=== PATIENT | male | born 1970 | race Caucasian/White ===

== ENCOUNTER 2016-12-29 11:18 | Observation (INO) | payer BC, OTHER ==
[~2016-12-29] VITALS: Ht 175.3 cm; Wt 91.3 kg
[~2016-12-29 11:18] MED LIST: ACID CONTROL150 MG PO; AMLODIPINE BESY10 MG PO; AMLODIPINE BESYL5 MG PO; ANALGESIC325 M1 PO; ASPIR-TRIN325 M1 PO; ASPIRIN EC325 M1 PO; ASPIRIN325 MG PO; ATARAX,VISTARIL25 M1 PO; ATARAX10 MG PO; ATIVAN1 MG PO; ATORVASTATIN CA10 MG PO; CARVEDILOL12.5 MG PO; CLONAZEPAM0.5 MG PO; COLACE CLEAR50 MG PO; COLACE100 MG PO; COLACE50 MG PO; COREG25 M1 PO; CRESTOR20 MG PO; CRESTOR40 MG PO; CYANOCOBALAM1000 MCG PO; Colace PO; DIOVAN160 MG PO; DURAGESIC12 MICROGR TD; Dilaudid PO; EFFIENT10 MG PO; Ecotrin PO; GABAPENTIN300 MG PO; GENACOTE325 MG PO; HUMALOG (UNIT)1 UNIT SC; HUMALOG100 UNIT/1 SC; HUMALOG100 UNIT/1 SQ; HUMALOG100 UNIT/2 SC; HUMALOG100 UNIT/2 SQ; HUMALOG100 UNITS/ SC; HYDROCODON-ACE1 EAC7 PO; IMDUR120 MG PO; IMDUR60 MG PO; IRON325 M1 PO; ISOSORBIDE MON120 M1 PO; KLONOPIN0.5 M1 PO; KLONOPIN1 MG PO; KlonoPIN PO; LANTUS (UNITS)1 UNIT SC; LANTUS 10100 UNITS/ SC; LANTUS 3 M100 UNITS/ PO; LANTUS 3 M100 UNITS/ SC; LANTUS 3 M100 UNITS1 SC; LIPITOR40 MG PO; LISINOPRIL10 MG PO; LISINOPRIL20 MG PO; LITE COAT ASPI325 M1 PO; LOPRESSOR50 MG PO; METOPROLOL SUC100 MG PO; MORPHINE SULFAT15 M1 PO; MS CONTIN,ORAMO15 M1 PO; MULTIVITAMIN1 EAC1 PO; NASACORT10.8 ML BOTH NARES; NEURONTIN300 MG PO; NITRO-DUR1 EAC4 TD; NITROGLYCERIN0.4 MG SL; NITROGLYCERIN1 EAC3 TD; NITROQUICK0.4 MG SL; NITROSTAT,NITR0.4 M1 SL; NITROSTAT0.4 MG SL; NORVASC10 M1 PO; NORVASC10 MG PO; NOVOLOG 10100 UNITS/ SC; NOVOLOG PE100 UNITS/ SC; Norvasc PO; OMEPRAZOLE20 MG PO; OXAYDO5 MG PO; OXYCODONE HCL5 MG PO; PLAVIX75 MG PO; PRAVASTATIN SOD80 MG PO; PRINIVIL5 MG PO; PROAIR HFA8.5 GM IH; PROVENTIL,2.5 MG/3 M IH; RANEXA1000 MG PO; RANEXA500 MG PO; RANITIDINE HCL150 M1 PO; RANITIDINE HCL150 MG PO; ROXICODONE5 MG PO; Ranitidine HCl PO; SERTRALINE HCL100 MG PO; TOPROL XL100 MG PO; TYLENOL ARTHRI650 M2 PO; TYLENOL EXTRA500 MG PO; ZANTAC150 M1 PO; ZANTAC150 MG PO; ZETIA10 MG PO; ZOLOFT100 MG PO; Zestril,Prinivil PO; Zoloft PO; metoprolol PO; oxyCODONE PO
[2016-12-29 12:11] LABS: HEMATOCRIT 32.2 % (38.0-50.0); MCH 31.2 PG (29.0-34.0); MCHC 34.8 G/DL (30.0-36.0); MCV 89.7 FL (86-99); MEAN PLAT.VOLUME 8.2 uM^3 (9.0-12.4); PLATELET COUNT 266 K/uL (156-360); RBC DIS.WIDTH-CV 11.9 % (11.8-14.6); RBC DIS.WIDTH-SD 39.1 % (39-53); RED BLOOD COUNT 3.59 M/uL (4.00-5.50); WHITE BLOOD COUNT 7.3 K/uL (4.1-10.2)
[2016-12-29 12:23] LABS: CHLORIDE 104 mEq/L (99-109); POTASSIUM 5.8 mEq/L (3.7-5.4); SODIUM 135 mEq/L (136-147)
[2016-12-29 12:25] LABS: GLUCOSE 247 mg/dL (70-99)
[2016-12-29 12:26] LABS: ANION GAP 8 MEQ/L (2-14)
[2016-12-29 12:29] LABS: GFR ESTIMATE (CALCULATED) 27 mL/min/; UREA NITROGEN (BUN) 49 mg/dL (9-23)
[2016-12-29 12:31] LABS: TROP-I INTERPRETATION NEGATIVE; TROPONIN-I < 0.01 ng/mL (0.0-0.30)
[2016-12-29 14:26] LABS: PTT 25.4 (25-32)
[2016-12-29 14:27] LABS: TOTAL BILIRUBIN 0.4 mg/dL (0.0-1.0)
[2016-12-29 14:28] LABS: ALKALINE PHOSPHATASE 74 IU/L (3-129)
[2016-12-29 14:31] LABS: DIRECT BILIRUBIN 0.2 mg/dL (0.0-0.3)
[2016-12-29] MEDS ORDERED: ATORVASTATIN CA80 MG PO (15:54)
[2016-12-29] MEDS ORDERED: AMLODIPINE BESY10 MG PO (16:01)
[2016-12-29] MEDS ORDERED: CARVEDILOL25 MG PO (16:01)
[2016-12-29] MEDS ORDERED: KLONOPIN1 MG PO (16:03)
[2016-12-29] MEDS ORDERED: COLACE CLEAR50 MG PO (16:05)
[2016-12-29] MEDS ORDERED: TAMSULOSIN HCL0.4 MG PO (16:08)
[2016-12-29] MEDS ORDERED: LISINOPRIL5 MG PO (16:08)
[2016-12-29] MEDS ORDERED: PRILOSEC20 MG PO (16:09)
[2016-12-29] MEDS ORDERED: IRON325 MG PO (16:09)
[2016-12-29] MEDS ORDERED: TYLENOL EXTRA500 MG PO (16:10)
[2016-12-29 16:30] VITALS: BP 136/61
[2016-12-29 17:05] LABS: POINT-OF-CARE METER ID UU14174216
[2016-12-29 18:26] LABS: TROP-I INTERPRETATION NEGATIVE; TROPONIN-I < 0.01 ng/mL (0.0-0.30)
[2016-12-29 23:49] VITALS: BP 126/69
[2016-12-30 01:00] LABS: TROP-I INTERPRETATION NEGATIVE; TROPONIN-I < 0.01 ng/mL (0.0-0.30)
[2016-12-30 03:26] LABS: POINT-OF-CARE METER ID UU14174216
[2016-12-30 03:48] VITALS: BP 118/68
[2016-12-30 07:20] VITALS: BP 129/72
[2016-12-30 08:06] LABS: POINT-OF-CARE METER ID UU14174216; POINT-OF-CARE USER ID ENVKC36
[2016-12-30 08:48] LABS: POINT-OF-CARE METER ID UU13113781
[2016-12-30 09:25] LABS: POINT-OF-CARE METER ID UU14174216
[2016-12-30 09:48] LABS: POINT-OF-CARE METER ID UU13113696
[2016-12-30 10:36] LABS: POINT-OF-CARE METER ID UU13113696
[2016-12-30 11:57] LABS: ANION GAP 4 MEQ/L (2-14); CHLORIDE 112 MEQ/L (99-109); SAMPLE HEMOLYSIS CHECK 0; SAMPLE ICTERIC CHECK 0; SAMPLE LIPEMIA CHECK 0; SODIUM 141 MEQ/L (136-147)
[2016-12-30 12:03] LABS: GFR ESTIMATE (CALCULATED) 33 mL/min/; UREA NITROGEN (BUN) 39 mg/dL (9-23)
[2016-12-30 12:08] LABS: GLUCOSE 99 mg/dL (70-99)
[2016-12-30 12:13] LABS: POINT-OF-CARE METER ID UU13113819
[2016-12-30 14:45] VITALS: BP 127/58
[2016-12-30 15:09] LABS: POINT-OF-CARE METER ID UU13113781
[2016-12-30 16:01] VITALS: BP 133/64
== END 2016-12-30 17:52 | disposition home or self-care (01) ==
LOC: EME 11:18 → EDOF 15:04 → 4EAST 15:04
PROVIDERS: Hospitalist; Internal Medicine Cardiovascular Disease
DX: I25.110 Atherosclerotic heart disease of native coronary artery with unstable angina pectoris (principal); T82.855A Stenosis of coronary artery stent, initial encounter; Y83.1 Surgical operation with implant of artificial internal device as the cause of abnormal reaction of the patient, or of later complication, without mention of misadventure at the time of the procedure; I12.9 Hypertensive chronic kidney disease with stage 1 through stage 4 chronic kidney disease, or unspecified chronic kidney disease; N18.4 Chronic kidney disease, stage 4 (severe); E10.9 Type 1 diabetes mellitus without complications; E78.5 Hyperlipidemia, unspecified; I25.2 Old myocardial infarction; E03.9 Hypothyroidism, unspecified; K21.9 Gastro-esophageal reflux disease without esophagitis; D64.9 Anemia, unspecified; G47.33 Obstructive sleep apnea (adult) (pediatric); D86.9 Sarcoidosis, unspecified
CPT/HCPCS: 71020; 80048; 80076; 82948; 84484; 85027; 85610; 85730; 93005; 99202; 99281; 99285; C1769; C1887; G0378; J1644; J1815; J2250; J2270; J2405; J3010; J7030; J7040

== ENCOUNTER 2017-02-03 19:23 | Inpatient (IN) | payer BC, OTHER ==
[~2017-02-03] VITALS: Ht 175.3 cm; Wt 91.4 kg
[~2017-02-03 19:23] MED LIST changes: +ATORVASTATIN CA80 MG PO; +CARVEDILOL25 MG PO; +IRON325 MG PO; +LISINOPRIL5 MG PO; +PRILOSEC20 MG PO; +TAMSULOSIN HCL0.4 MG PO
[2017-02-03 19:56] LABS: HEMATOCRIT 31.9 % (38.0-50.0); MCH 31.4 PG (29.0-34.0); MCHC 34.8 G/DL (30.0-36.0); MCV 90.1 FL (86-99); PLATELET COUNT 212 K/uL (156-360); RBC DIS.WIDTH-CV 12.2 % (11.8-14.6); RBC DIS.WIDTH-SD 40.2 % (39-53); RED BLOOD COUNT 3.54 M/uL (4.00-5.50); WHITE BLOOD COUNT 8.6 K/uL (4.1-10.2)
[2017-02-03 20:09] LABS: CHLORIDE 104 mEq/L (99-109); POTASSIUM 4.5 mEq/L (3.7-5.4); SODIUM 138 mEq/L (136-147)
[2017-02-03 20:10] LABS: GLUCOSE 281 mg/dL (70-99)
[2017-02-03 20:12] LABS: ANION GAP 9 MEQ/L (2-14)
[2017-02-03 20:14] LABS: GFR ESTIMATE (CALCULATED) 26 mL/min/
[2017-02-03 20:15] LABS: UREA NITROGEN (BUN) 34 mg/dL (9-23)
[2017-02-03 20:23] LABS: TROP-I INTERPRETATION POSITIVE; TROPONIN-I 2.09 ng/mL (0.0-0.30)
[2017-02-03] MEDS ORDERED: RANEXA500 MG PO (21:03)
[2017-02-03] MEDS ORDERED: NOVOLOG PE100 UNITS/ SC (21:11)
[2017-02-03] MEDS ORDERED: NASACORT10.8 ML BOTH NARES (21:12)
[2017-02-03] MEDS ORDERED: PROTONIX40 MG PO (21:12)
[2017-02-03 21:44] LABS: PROTHROMBIN TIME 10.3 (9.2-11.2); PTT 35.4 (25-32)
[2017-02-03 22:20] LABS: TOTAL BILIRUBIN 0.7 mg/dL (0.0-1.0)
[2017-02-03 22:21] LABS: ALKALINE PHOSPHATASE 85 IU/L (3-129)
[2017-02-03 22:23] LABS: DIRECT BILIRUBIN 0.3 mg/dL (0.0-0.3)
[2017-02-03 22:24] LABS: LIPASE 17 U/L (1.0-51.0)
[2017-02-03 23:22] VITALS: BP 172/85
[2017-02-03 23:48] LABS: POINT-OF-CARE METER ID UU13113781
[2017-02-04 01:37] LABS: TROP-I INTERPRETATION POSITIVE; TROPONIN-I 1.97 ng/mL (0.0-0.30)
[2017-02-04 04:10] VITALS: BP 162/84
[2017-02-04 07:48] LABS: EOSINOPHIL (%) 5.3 % (0-5); EOSINOPHIL COUNT 0.3 K/uL (0-0.3); HEMATOCRIT 28.7 % (38.0-50.0); IMMATURE GRANULOCYTE (%) 0.3 % (0.0-0.7); INSTRUMENT ABS NEUTROPHIL CT 3.8 K/uL; LYMPHOCYTE COUNT 1.4 K/uL (1.0-2.8); MCHC 33.8 G/DL (30.0-36.0); MCV 91.7 FL (86-99); MEAN PLAT.VOLUME 8.3 uM^3 (9.0-12.4); MONOCYTE (%) 9.7 % (3-12); MONOCYTE COUNT 0.6 K/uL (0-0.8); NEUTROPHIL COUNT 3.8 K/uL (1.8-6.4); PLATELET COUNT 208 K/uL (156-360); RBC DIS.WIDTH-CV 12.4 % (11.8-14.6); RBC DIS.WIDTH-SD 41.1 % (39-53); RED BLOOD COUNT 3.13 M/uL (4.00-5.50); WHITE BLOOD COUNT 6.2 K/uL (4.1-10.2)
[2017-02-04 08:07] VITALS: BP 131/63
[2017-02-04 08:15] LABS: POINT-OF-CARE USER ID ENVKC36
[2017-02-04 08:19] LABS: TROP-I INTERPRETATION POSITIVE; TROPONIN-I 1.45 ng/mL (0.0-0.30)
[2017-02-04 08:36] LABS: ANION GAP 8 MEQ/L (2-14); CHLORIDE 103 MEQ/L (99-109); GFR ESTIMATE (CALCULATED) 26 mL/min/; GLUCOSE 259 mg/dL (70-99); POTASSIUM 4.4 MEQ/L (3.7-5.4); SAMPLE HEMOLYSIS CHECK 0; SAMPLE ICTERIC CHECK 0; SAMPLE LIPEMIA CHECK 0; SODIUM 137 MEQ/L (136-147); UREA NITROGEN (BUN) 33 mg/dL (9-23)
[2017-02-04 11:40] LABS: POINT-OF-CARE USER ID ENVKC36
[2017-02-04 12:16] VITALS: BP 115/66
[2017-02-04 12:41] LABS: INTER. NORMALIZED RATIO 1.1; PROTHROMBIN TIME 10.7 (9.2-11.2)
[2017-02-04 12:46] LABS: PTT 61.2 (25-32)
[2017-02-04 15:51] VITALS: BP 128/62
[2017-02-04 18:48] LABS: PROTHROMBIN TIME 10.5 (9.2-11.2)
[2017-02-04 20:40] LABS: POINT-OF-CARE METER ID UU14174216
[2017-02-04 21:00] VITALS: BP 139/67
[2017-02-05] VITALS (7 sets, daily range): BP systolic 119–151; BP diastolic 59–70
[2017-02-05 05:42] LABS: HEMATOCRIT 28.4 % (38.0-50.0); MCH 31.5 PG (29.0-34.0); MCHC 34.5 G/DL (30.0-36.0); MCV 91.3 FL (86-99); MEAN PLAT.VOLUME 8.3 uM^3 (9.0-12.4); PLATELET COUNT 206 K/uL (156-360); RBC DIS.WIDTH-CV 12.2 % (11.8-14.6); RBC DIS.WIDTH-SD 40.5 % (39-53); RED BLOOD COUNT 3.11 M/uL (4.00-5.50); WHITE BLOOD COUNT 7.6 K/uL (4.1-10.2)
[2017-02-05 06:35] LABS: ANION GAP 7 MEQ/L (2-14); CHLORIDE 103 MEQ/L (99-109); GFR ESTIMATE (CALCULATED) 22 mL/min/; GLUCOSE 319 mg/dL (70-99); POTASSIUM 4.5 MEQ/L (3.7-5.4); SAMPLE HEMOLYSIS CHECK 0; SAMPLE ICTERIC CHECK 0; SAMPLE LIPEMIA CHECK 0; SODIUM 136 MEQ/L (136-147); UREA NITROGEN (BUN) 42 mg/dL (9-23)
[2017-02-05 07:56] LABS: POINT-OF-CARE METER ID UU13113781
[2017-02-05 17:17] LABS: POINT-OF-CARE METER ID UU13113781
[2017-02-05 21:35] LABS: POINT-OF-CARE METER ID UU13113781
[2017-02-05 23:40] LABS: POINT-OF-CARE METER ID UU13113781
[2017-02-06 03:46] VITALS: BP 116/58
[2017-02-06 05:02] LABS: HEMATOCRIT 28.4 % (38.0-50.0); IMM.RETIC FRACTION 21.4 % (3-19); MCH 32.1 PG (29.0-34.0); MCHC 35.6 G/DL (30.0-36.0); MCV 90.2 FL (86-99); MEAN PLAT.VOLUME 8.2 uM^3 (9.0-12.4); PLATELET COUNT 208 K/uL (156-360); RBC DIS.WIDTH-CV 11.9 % (11.8-14.6); RBC DIS.WIDTH-SD 39.3 % (39-53); RED BLOOD COUNT 3.15 M/uL (4.00-5.50); RETIC HGB EQUIVALENT 33.7 (28-36); RETICULOCYTE COUNT 3.7 % (0.5-1.8); WHITE BLOOD COUNT 6.6 K/uL (4.1-10.2)
[2017-02-06 05:26] LABS: CHLORIDE 104 mEq/L (99-109); POTASSIUM 4.2 mEq/L (3.7-5.4); SODIUM 137 mEq/L (136-147)
[2017-02-06 05:28] LABS: GLUCOSE 307 mg/dL (70-99)
[2017-02-06 05:30] LABS: ANION GAP 9 MEQ/L (2-14)
[2017-02-06 05:32] LABS: GFR ESTIMATE (CALCULATED) 23 mL/min/
[2017-02-06 05:33] LABS: UREA NITROGEN (BUN) 38 mg/dL (9-23)
[2017-02-06 05:36] LABS: IRON 74 MCG/DL (35-150)
[2017-02-06 07:14] VITALS: BP 116/58
[2017-02-06] MEDS ORDERED: LASIX40 MG PO (09:43)
[2017-02-06] MEDS ORDERED: ASPIR-LOW81 MG PO (09:43)
[2017-02-06] MEDS ORDERED: BRILINTA90 MG PO (09:43)
[2017-02-07 10:10] LABS: POINT-OF-CARE METER ID UU13113781; POINT-OF-CARE USER ID ENVKC36
== END 2017-02-06 10:28 | disposition home or self-care (01) | DRG 280 ==
LOC: EME 19:23 → 4EAST 21:05 → EDOF 21:05 → 4EAST 22:47
PROVIDERS: Emergency Medicine; Hospitalist; Internal Medicine; Internal Medicine Nephrology
DX: I21.4 Non-ST elevation (NSTEMI) myocardial infarction (principal); I50.31 Acute diastolic (congestive) heart failure; J90 Pleural effusion, not elsewhere classified; I30.1 Infective pericarditis; I25.10 Atherosclerotic heart disease of native coronary artery without angina pectoris; Z68.29 Body mass index [BMI] 29.0-29.9, adult; I13.0 Hypertensive heart and chronic kidney disease with heart failure and stage 1 through stage 4 chronic kidney disease, or unspecified chronic kidney disease; E78.5 Hyperlipidemia, unspecified; G89.4 Chronic pain syndrome; K31.84 Gastroparesis; D53.9 Nutritional anemia, unspecified; Z95.5 Presence of coronary angioplasty implant and graft; T82.858D Stenosis of other vascular prosthetic devices, implants and grafts, subsequent encounter; E10.65 Type 1 diabetes mellitus with hyperglycemia; E10.22 Type 1 diabetes mellitus with diabetic chronic kidney disease; E10.42 Type 1 diabetes mellitus with diabetic polyneuropathy; E10.51 Type 1 diabetes mellitus with diabetic peripheral angiopathy without gangrene; E10.319 Type 1 diabetes mellitus with unspecified diabetic retinopathy without macular edema; N18.4 Chronic kidney disease, stage 4 (severe); N17.9 Acute kidney failure, unspecified; E66.9 Obesity, unspecified
CPT/HCPCS: 71020; 71250; 74176; 80048; 80053; 80069; 80076; 82248; 82607; 82746; 82948; 83540; 83690; 83880; 84466; 84484; 85025; 85027; 85045; 85610; 85730; 93005; 94640; 99202; 99281; 99285; J1170; J1815; J1940; J2270; J2405

== ENCOUNTER 2017-02-20 14:58 | Observation (INO) | payer BC, OTHER ==
[~2017-02-20] VITALS: Ht 175.3 cm; Wt 88.4 kg
[~2017-02-20 14:58] MED LIST changes: +ASPIR-LOW81 MG PO; +BRILINTA90 MG PO; +LASIX40 MG PO; +PROTONIX40 MG PO
[2017-02-20 16:01] LABS: HEMATOCRIT 33.5 % (38.0-50.0); MCH 30.6 PG (29.0-34.0); MCHC 34.9 G/DL (30.0-36.0); MCV 87.7 FL (86-99); MEAN PLAT.VOLUME 7.8 uM^3 (9.0-12.4); PLATELET COUNT 234 K/uL (156-360); RBC DIS.WIDTH-CV 11.9 % (11.8-14.6); RBC DIS.WIDTH-SD 38.5 % (39-53); WHITE BLOOD COUNT 5.8 K/uL (4.1-10.2)
[2017-02-20 16:03] LABS: RED BLOOD COUNT 3.82 M/uL (4.00-5.50)
[2017-02-20 16:10] LABS: CHLORIDE 105 mEq/L (99-109); POTASSIUM 3.8 mEq/L (3.7-5.4); SODIUM 138 mEq/L (136-147)
[2017-02-20 16:13] LABS: ANION GAP 9 MEQ/L (2-14)
[2017-02-20 16:16] LABS: GFR ESTIMATE (CALCULATED) 26 mL/min/
[2017-02-20 16:17] LABS: UREA NITROGEN (BUN) 33 mg/dL (9-23)
[2017-02-20 16:23] LABS: TROP-I INTERPRETATION NEGATIVE; TROPONIN-I < 0.01 ng/mL (0.0-0.30)
[2017-02-20 16:24] LABS: GLUCOSE 54 mg/dL (70-99)
[2017-02-20] MEDS ORDERED: PROAIR HFA8.5 GM IH (17:52)
[2017-02-20] MEDS ORDERED: KLONOPIN0.5 M1 PO (17:58)
[2017-02-20] MEDS ORDERED: LASIX40 MG PO ×2 (18:08)
[2017-02-20 20:50] VITALS: BP 158/71
[2017-02-20 23:24] VITALS: BP 160/74
[2017-02-20 23:30] LABS: TROP-I INTERPRETATION NEGATIVE; TROPONIN-I < 0.01 ng/mL (0.0-0.30)
[2017-02-21 04:00] VITALS: BP 131/73
[2017-02-21 04:24] LABS: HEMATOCRIT 31.1 % (38.0-50.0); MCV 88.4 FL (86-99); MEAN PLAT.VOLUME 8.3 uM^3 (9.0-12.4); PLATELET COUNT 223 K/uL (156-360); RBC DIS.WIDTH-CV 11.8 % (11.8-14.6); RBC DIS.WIDTH-SD 37.8 % (39-53); RED BLOOD COUNT 3.52 M/uL (4.00-5.50); WHITE BLOOD COUNT 4.8 K/uL (4.1-10.2)
[2017-02-21 04:42] LABS: CHLORIDE 106 mEq/L (99-109); SODIUM 138 mEq/L (136-147)
[2017-02-21 04:45] LABS: ANION GAP 9 MEQ/L (2-14)
[2017-02-21 04:48] LABS: GFR ESTIMATE (CALCULATED) 26 mL/min/
[2017-02-21 04:49] LABS: UREA NITROGEN (BUN) 32 mg/dL (9-23)
[2017-02-21 04:50] LABS: TROP-I INTERPRETATION NEGATIVE; TROPONIN-I < 0.01 ng/mL (0.0-0.30)
[2017-02-21 04:54] LABS: GLUCOSE 383 mg/dL (70-99); POTASSIUM 4.7 mEq/L (3.7-5.4)
[2017-02-21 08:36] LABS: POINT-OF-CARE METER ID UU13113831
[2017-02-21 09:37] VITALS: BP 109/72
== END 2017-02-21 12:14 | disposition home or self-care (01) ==
LOC: EME 14:58 → EDOF 18:38 → 5WEST 18:38 → EDOF 18:38 → 5WEST 20:44
PROVIDERS: Hospitalist; Internal Medicine
DX: R07.2 Precordial pain (principal); F32.9 Major depressive disorder, single episode, unspecified; E78.5 Hyperlipidemia, unspecified; K21.9 Gastro-esophageal reflux disease without esophagitis; I25.2 Old myocardial infarction; I25.10 Atherosclerotic heart disease of native coronary artery without angina pectoris; I50.9 Heart failure, unspecified; Z95.5 Presence of coronary angioplasty implant and graft; E11.22 Type 2 diabetes mellitus with diabetic chronic kidney disease; N18.3 Chronic kidney disease, stage 3 (moderate); I13.0 Hypertensive heart and chronic kidney disease with heart failure and stage 1 through stage 4 chronic kidney disease, or unspecified chronic kidney disease
CPT/HCPCS: 71020; 80048; 80048 91; 82948; 83880; 84484; 85027; 93005; 99202; 99281; 99284; G0378; J1644; J1815; J2270

== ENCOUNTER 2017-08-15 12:49 | Inpatient (IN) | payer BC, OTHER ==
[~2017-08-15] VITALS: Ht 177.8 cm; Wt 91.8 kg
[~2017-08-15 12:49] MED LIST changes: +TYLENOL ARTHRI650 MG PO
[2017-08-15 13:17] LABS: HEMATOCRIT 35.8 % (38.0-50.0); MCH 31.3 PG (29.0-34.0); MCV 86.9 FL (86-99); MEAN PLAT.VOLUME 8.1 uM^3 (9.0-12.4); PLATELET COUNT 233 K/uL (156-360); RBC DIS.WIDTH-CV 12.1 % (11.8-14.6); RBC DIS.WIDTH-SD 38.7 % (39-53); RED BLOOD COUNT 4.12 M/uL (4.00-5.50); WHITE BLOOD COUNT 6.3 K/uL (4.1-10.2)
[2017-08-15 13:29] LABS: CHLORIDE 102 mEq/L (99-109); POTASSIUM 4.3 mEq/L (3.7-5.4); SODIUM 138 mEq/L (136-147)
[2017-08-15 13:31] LABS: GLUCOSE 272 mg/dL (70-99)
[2017-08-15 13:32] LABS: ANION GAP 10 MEQ/L (2-14)
[2017-08-15 13:35] LABS: GFR ESTIMATE (CALCULATED) 24 mL/min/
[2017-08-15 13:36] LABS: UREA NITROGEN (BUN) 36 mg/dL (9-23)
[2017-08-15 13:41] LABS: TROP-I INTERPRETATION NEGATIVE; TROPONIN-I 0.04 ng/mL (0.0-0.30)
[2017-08-15 15:42] LABS: TROP-I INTERPRETATION NEGATIVE; TROPONIN-I 0.03 ng/mL (0.0-0.30)
[2017-08-15 16:41] LABS: TOTAL BILIRUBIN 0.4 mg/dL (0.0-1.0)
[2017-08-15 16:42] LABS: ALKALINE PHOSPHATASE 82 IU/L (3-129)
[2017-08-15 16:45] LABS: DIRECT BILIRUBIN 0.2 mg/dL (0.0-0.3)
[2017-08-15 16:46] LABS: LIPASE 11 U/L (1.0-51.0)
[2017-08-15] MEDS ORDERED: CARVEDILOL6.25 MG PO (18:38)
[2017-08-15] MEDS ORDERED: TUMS500 MG PO (18:44)
[2017-08-15] MEDS ORDERED: ZYRTEC10 M2 PO (18:51)
[2017-08-15 19:56] VITALS: BP 180/98
[2017-08-15 21:17] LABS: POINT-OF-CARE METER ID UU13113781
[2017-08-15 23:20] VITALS: BP 135/81
[2017-08-16] VITALS (13 sets, daily range): BP systolic 136–170; BP diastolic 76–89
[2017-08-16 02:17] LABS: AMPHETAMINES QUANT VALUE 0 NG/ML; BARBITUATES QUANT VALUE 0 NG/ML; BENZODIAZEPINES QUANT VALUE 0 NG/ML; BENZODIAZEPINES, URINE SCREEN Negative (200 ng/mL); MARIJUANA QUANT VALUE 0 NG/ML; PHENCYCLIDINE QUANT VALUE 0 NG/ML
[2017-08-16 05:27] LABS: HEMATOCRIT 32.5 % (38.0-50.0); MCH 30.9 PG (29.0-34.0); MCHC 34.8 G/DL (30.0-36.0); MCV 88.8 FL (86-99); MEAN PLAT.VOLUME 8.4 uM^3 (9.0-12.4); PLATELET COUNT 193 K/uL (156-360); RBC DIS.WIDTH-CV 12.4 % (11.8-14.6); RBC DIS.WIDTH-SD 39.8 % (39-53); RED BLOOD COUNT 3.66 M/uL (4.00-5.50); WHITE BLOOD COUNT 4.9 K/uL (4.1-10.2)
[2017-08-16 05:51] LABS: ANION GAP 7 MEQ/L (2-14); CHLORIDE 105 MEQ/L (99-109); GFR ESTIMATE (CALCULATED) 27 mL/min/; GLUCOSE 274 mg/dL (70-99); POTASSIUM 4.4 MEQ/L (3.7-5.4); SAMPLE HEMOLYSIS CHECK 0; SAMPLE ICTERIC CHECK 0; SAMPLE LIPEMIA CHECK 0; SODIUM 140 MEQ/L (136-147); UREA NITROGEN (BUN) 32 mg/dL (9-23)
[2017-08-16 07:40] LABS: POINT-OF-CARE METER ID UU14174216
[2017-08-16 10:43] LABS: TROP-I INTERPRETATION NEGATIVE; TROPONIN-I 0.03 ng/mL (0.0-0.30)
[2017-08-16 11:10] LABS: POINT-OF-CARE METER ID UU14174216
[2017-08-16 18:06] LABS: POINT-OF-CARE METER ID UU14174217
[2017-08-16 18:48] LABS: METH RESISTANT S AUREUS PCR NEGATIVE (NEGATIVE)
[2017-08-16 18:52] LABS: PROBE CHECK PASS; SPECIMEN PROCESSING CONTROL PASS
[2017-08-16 22:37] LABS: POINT-OF-CARE METER ID UU14174217
[2017-08-17] VITALS (24 sets, daily range): BP systolic 127–178; BP diastolic 72–91
[2017-08-17 07:52] LABS: POINT-OF-CARE METER ID UU14162636
[2017-08-17 11:00] LABS: POINT-OF-CARE METER ID UU14162636
[2017-08-17 11:21] LABS: POINT-OF-CARE METER ID UU14162636
[2017-08-17 16:18] LABS: POINT-OF-CARE METER ID UU14162636
[2017-08-17 21:16] LABS: POINT-OF-CARE METER ID UU14162636
[2017-08-18] VITALS (24 sets, daily range): BP systolic 110–175; BP diastolic 60–85
[2017-08-18 09:19] LABS: POINT-OF-CARE METER ID UU13113803
[2017-08-18 11:49] LABS: ANION GAP 6 MEQ/L (2-14); CHLORIDE 106 MEQ/L (99-109); POTASSIUM 4.7 MEQ/L (3.7-5.4); SAMPLE HEMOLYSIS CHECK 0; SAMPLE ICTERIC CHECK 0; SAMPLE LIPEMIA CHECK 0; SODIUM 140 MEQ/L (136-147); UREA NITROGEN (BUN) 38 mg/dL (9-23)
[2017-08-18 11:50] LABS: GFR ESTIMATE (CALCULATED) 22 mL/min/ (58.99-99999); GLUCOSE 50 mg/dL (70-99)
[2017-08-18 11:53] LABS: POINT-OF-CARE METER ID UU13113803
[2017-08-18 12:08] LABS: POINT-OF-CARE METER ID UU13113803
[2017-08-18 17:57] LABS: POINT-OF-CARE METER ID UU14162636
[2017-08-18 23:00] LABS: POINT-OF-CARE METER ID UU14314082; POINT-OF-CARE USER ID LABHNS84
[2017-08-19] VITALS (24 sets, daily range): BP systolic 142–173; BP diastolic 66–83
[2017-08-19 08:29] LABS: POINT-OF-CARE METER ID UU14314082
[2017-08-19 12:16] LABS: POINT-OF-CARE METER ID UU14314082
[2017-08-19 17:42] LABS: POINT-OF-CARE METER ID UU14314082
[2017-08-19 21:53] LABS: POINT-OF-CARE METER ID UU14314082; POINT-OF-CARE USER ID LABHNS84
[2017-08-20] VITALS (24 sets, daily range): BP systolic 108–161; BP diastolic 53–87
[2017-08-20 07:33] LABS: EOSINOPHIL (%) 3.3 % (0-5); EOSINOPHIL COUNT 0.2 K/uL (0-0.3); HEMATOCRIT 29.9 % (38.0-50.0); IMMATURE GRANULOCYTE (%) 0.3 % (0.0-0.7); INSTRUMENT ABS NEUTROPHIL CT 4.4 K/uL; MCH 30.6 PG (29.0-34.0); MCHC 34.8 G/DL (30.0-36.0); MCV 87.9 FL (86-99); MONOCYTE (%) 11.1 % (3-12); MONOCYTE COUNT 0.7 K/uL (0-0.8); NEUTROPHIL (%) 69.6 % (45-76); NEUTROPHIL COUNT 4.4 K/uL (1.8-6.4); PLATELET COUNT 140 K/uL (156-360); RBC DIS.WIDTH-CV 11.9 % (11.8-14.6); RBC DIS.WIDTH-SD 38.6 % (39-53); WHITE BLOOD COUNT 6.3 K/uL (4.1-10.2)
[2017-08-20 07:59] LABS: INTER. NORMALIZED RATIO 0.9; PROTHROMBIN TIME 10.7 SEC (10.2-12.9); TROP-I INTERPRETATION NEGATIVE; TROPONIN-I < 0.01 ng/mL (0.0-0.30)
[2017-08-20 08:01] LABS: PTT 33.4 SEC (25-37)
[2017-08-20 08:23] LABS: ALKALINE PHOSPHATASE 71 IU/L (3-129); ANION GAP 7 MEQ/L (2-14); CHLORIDE 104 MEQ/L (99-109); GFR ESTIMATE (CALCULATED) 25 mL/min/ (58.99-99999); HDL CHOLESTEROL 31 MG/DL (Desirable>=40); LDL CHOLESTEROL 54 mg/dL (Desirable<100); MAGNESIUM 2.1 mg/dl (1.3-2.7); NON-HDL CHOLESTEROL 83 mg/dL (Desirable<160); POTASSIUM 4.9 MEQ/L (3.7-5.4); SAMPLE HEMOLYSIS CHECK 0; SAMPLE ICTERIC CHECK 0; SAMPLE LIPEMIA CHECK 0; SODIUM 135 MEQ/L (136-147); TOTAL BILIRUBIN 0.5 MG/DL (0.0-1.0); TOTAL CHOLESTEROL 114 mg/dL (Desirable<200); TRIGLYCERIDES 145 MG/DL (Normal: <150); UREA NITROGEN (BUN) 35 mg/dL (9-23)
[2017-08-20 08:25] LABS: GLUCOSE 344 mg/dL (70-99)
[2017-08-20 12:46] LABS: POINT-OF-CARE METER ID UU13113803
[2017-08-20 18:07] LABS: POINT-OF-CARE METER ID UU13113803
[2017-08-20 22:13] LABS: POINT-OF-CARE METER ID UU14314082; POINT-OF-CARE USER ID LABHNS84
[2017-08-21] VITALS: BP 145/73
[2017-08-21 01:00] VITALS: BP 163/89
[2017-08-21 02:00] VITALS: BP 151/76
[2017-08-21 03:00] VITALS: BP 166/82
== END 2017-08-21 05:40 | disposition short-term general hospital (02) | DRG 303 ==
LOC: EME 12:49 → 4EAST 16:02 → EDOF 16:02 → ENRESERV 16:07 → 4EAST 19:53 → ENRESERV 08-16 11:42 → 4WEST 08-16 12:29 → 4EAST 08-16 13:12 → ENRESERV 08-16 13:13 → 4WEST 08-16 13:19
PROVIDERS: Internal Medicine; Internal Medicine Cardiovascular Disease; Internal Medicine Critical Care Medicine; Nurse Practitioner Family
DX: I25.110 Atherosclerotic heart disease of native coronary artery with unstable angina pectoris (principal); I16.0 Hypertensive urgency; I12.9 Hypertensive chronic kidney disease with stage 1 through stage 4 chronic kidney disease, or unspecified chronic kidney disease; N18.4 Chronic kidney disease, stage 4 (severe); T82.855A Stenosis of coronary artery stent, initial encounter; Y83.1 Surgical operation with implant of artificial internal device as the cause of abnormal reaction of the patient, or of later complication, without mention of misadventure at the time of the procedure; E78.5 Hyperlipidemia, unspecified; E11.42 Type 2 diabetes mellitus with diabetic polyneuropathy; E11.43 Type 2 diabetes mellitus with diabetic autonomic (poly)neuropathy; K31.84 Gastroparesis; E11.319 Type 2 diabetes mellitus with unspecified diabetic retinopathy without macular edema; E11.22 Type 2 diabetes mellitus with diabetic chronic kidney disease; E11.51 Type 2 diabetes mellitus with diabetic peripheral angiopathy without gangrene; D63.8 Anemia in other chronic diseases classified elsewhere; D86.9 Sarcoidosis, unspecified; K21.9 Gastro-esophageal reflux disease without esophagitis; N40.0 Benign prostatic hyperplasia without lower urinary tract symptoms; F39 Unspecified mood [affective] disorder; F41.9 Anxiety disorder, unspecified; G89.29 Other chronic pain; I25.2 Old myocardial infarction; Z79.4 Long term (current) use of insulin; Z95.5 Presence of coronary angioplasty implant and graft
CPT/HCPCS: 71020; 76770; 80048; 80053; 80061; 80076; 80306 90; 82948; 83690; 83735; 84484; 85025; 85027; 85610; 85730; 87641; 93005; 93970; 94640 76; 99202; 99281; 99285; G0378; J0360; J1170; J1644; J1815; J2270; J2405; J2765; J3010; J7030; J7040; J7050

== ENCOUNTER 2017-11-16 16:53 | Observation (INO) | payer BC, OTHER ==
[~2017-11-16] VITALS: Ht 175.3 cm; Wt 88.3 kg
[~2017-11-16 16:53] MED LIST changes: +CARVEDILOL6.25 MG PO; +TUMS500 MG PO; +ZYRTEC10 M2 PO
[2017-11-16 17:26] LABS: HEMATOCRIT 34.1 % (38.0-50.0); HEMOGLOBIN 12.3 G/DL (12.5-16.6); MCH 30.8 PG (29.0-34.0); MCHC 36.1 G/DL (30.0-36.0); MCV 85.3 FL (86-99); PLATELET COUNT 204 K/uL (156-360); RBC DIS.WIDTH-CV 12.3 % (11.8-14.6); RBC DIS.WIDTH-SD 38.3 % (39-53)
[2017-11-16 17:34] LABS: CHLORIDE 102 mEq/L (99-109); POTASSIUM 4.3 mEq/L (3.7-5.4); SODIUM 136 mEq/L (136-147)
[2017-11-16 17:36] LABS: GLUCOSE 333 mg/dL (70-99)
[2017-11-16 17:40] LABS: CREATININE 3.3 mg/dL (0.6-1.3); GFR ESTIMATE (CALCULATED) 22 mL/min/ (58.99-99999)
[2017-11-16 17:41] LABS: UREA NITROGEN (BUN) 37 mg/dL (9-23)
[2017-11-16 17:59] LABS: TROP-I INTERPRETATION NEGATIVE; TROPONIN-I < 0.01 ng/mL (0.0-0.30)
[2017-11-16] MEDS ORDERED: NITROSTAT0.4 MG SL (18:26)
[2017-11-16] MEDS ORDERED: BRILINTA90 MG PO (18:32)
[2017-11-16] MEDS ORDERED: ASPIR 8181 M1 PO (18:33)
[2017-11-16] MEDS ORDERED: CAVERJECT40 MCG IC (18:42)
[2017-11-16] MEDS ORDERED: ROXICODONE5 MG PO (18:43)
[2017-11-16 21:30] VITALS: BP 182/88
[2017-11-16 23:48] VITALS: BP 167/83
[2017-11-17 00:52] LABS: TROP-I INTERPRETATION NEGATIVE; TROPONIN-I < 0.01 ng/mL (0.0-0.30)
[2017-11-17 03:39] VITALS: BP 141/78
[2017-11-17 05:26] LABS: HEMATOCRIT 32.7 % (38.0-50.0); HEMOGLOBIN 11.5 G/DL (12.5-16.6); MCH 30.9 PG (29.0-34.0); MCHC 35.2 G/DL (30.0-36.0); MCV 87.9 FL (86-99); PLATELET COUNT 186 K/uL (156-360); RBC DIS.WIDTH-CV 12.8 % (11.8-14.6); RBC DIS.WIDTH-SD 41.1 % (39-53); RED BLOOD COUNT 3.72 M/uL (4.00-5.50); WHITE BLOOD COUNT 7.3 K/uL (4.1-10.2)
[2017-11-17 05:48] LABS: CHLORIDE 103 MEQ/L (99-109); CREATININE 3.1 MG/DL (0.6-1.3); GFR ESTIMATE (CALCULATED) 23 mL/min/ (58.99-99999); GLUCOSE 255 mg/dL (70-99); POTASSIUM 4.3 MEQ/L (3.7-5.4); SODIUM 140 MEQ/L (136-147); TROP-I INTERPRETATION NEGATIVE; TROPONIN-I < 0.01 ng/mL (0.0-0.30); UREA NITROGEN (BUN) 32 mg/dL (9-23)
[2017-11-17 08:25] VITALS: BP 145/74
[2017-11-17 10:40] LABS: HEMOGLOBIN A1c (GLYCOHEMOGLOB) 8.5 % (Below 5.7)
[2017-11-17] MEDS ORDERED: APRESOLINE50 MG PO (11:35)
[2017-11-17 12:26] VITALS: BP 158/77
== END 2017-11-17 12:57 | disposition home or self-care (01) ==
LOC: EME 16:53 → EDOF 19:53 → 5WEST 19:53 → EDOF 19:53 → ENRESERV 20:01 → 5WEST 21:25
PROVIDERS: Emergency Medicine; Hospitalist
DX: R07.9 Chest pain, unspecified (principal); I25.118 Atherosclerotic heart disease of native coronary artery with other forms of angina pectoris; Z95.5 Presence of coronary angioplasty implant and graft; I13.0 Hypertensive heart and chronic kidney disease with heart failure and stage 1 through stage 4 chronic kidney disease, or unspecified chronic kidney disease; I50.9 Heart failure, unspecified; D64.9 Anemia, unspecified; E78.5 Hyperlipidemia, unspecified; N18.3 Chronic kidney disease, stage 3 (moderate); E11.22 Type 2 diabetes mellitus with diabetic chronic kidney disease; E11.40 Type 2 diabetes mellitus with diabetic neuropathy, unspecified; G89.29 Other chronic pain; E11.51 Type 2 diabetes mellitus with diabetic peripheral angiopathy without gangrene; E11.43 Type 2 diabetes mellitus with diabetic autonomic (poly)neuropathy; K31.84 Gastroparesis; M54.2 Cervicalgia; Z79.4 Long term (current) use of insulin
CPT/HCPCS: 71046; 80048; 82948; 83036; 84484; 85027; 93005; 99202; 99281; 99285; G0378; J2270

== ENCOUNTER 2017-11-22 11:27 | Inpatient (IN) | payer BC, OTHER ==
[~2017-11-22] VITALS: Ht 175.3 cm; Wt 90.4 kg
[2017-11-22] VITALS (17 sets, daily range): BP systolic 97–133; BP diastolic 55–76
[~2017-11-22 11:27] MED LIST changes: +APRESOLINE50 MG PO; +ASPIR 8181 M1 PO; +CAVERJECT40 MCG IC
[2017-11-23] VITALS (10 sets, daily range): BP systolic 120–148; BP diastolic 56–80
[2017-11-23 03:29] LABS: APPEARANCE CLOUDY ((CLEAR)); BILIRUBIN NEGATIVE; BLOOD NEGATIVE; COLOR YELLOW ((YELLOW)); GLUCOSE (STRIP) 50; KETONES NEGATIVE; LEUKOCYTES NEGATIVE; NITRITE NEGATIVE; PROTEIN (STRIP) 100; SPECIFIC GRAVITY 1.014 (1.000-1.030); UROBILINOGEN 0.2 MG/DL (0.2-1.0)
[2017-11-23 03:40] LABS: BACTERIA RARE /HPF; EPITHELIAL CELLS RARE /HPF; MUCUS TRACE /LPF; RED BLOOD CELLS 0-5 /HPF (0-5); WHITE BLOOD CELLS 0-5 /HPF (0-5)
[2017-11-23 04:41] LABS: UR CREATININE CONCENTRATION 159.4 MG/DL
[2017-11-23 04:55] LABS: BASOPHIL (%) 0.5 % (0-1); EOSINOPHIL (%) 7.2 % (0-5); EOSINOPHIL COUNT 0.5 K/uL (0-0.3); HEMATOCRIT 29.3 % (38.0-50.0); HEMOGLOBIN 10.2 G/DL (12.5-16.6); IMMATURE GRANULOCYTE (%) 0.3 % (0.0-0.7); LYMPHOCYTE (%) 16.5 % (15-42); LYMPHOCYTE COUNT 1.1 K/uL (1.0-2.8); MCH 30.6 PG (29.0-34.0); MCHC 34.8 G/DL (30.0-36.0); MONOCYTE (%) 10.5 % (3-12); MONOCYTE COUNT 0.7 K/uL (0-0.8); NEUTROPHIL COUNT 4.2 K/uL (1.8-6.4); PLATELET COUNT 182 K/uL (156-360); RBC DIS.WIDTH-CV 12.2 % (11.8-14.6); RBC DIS.WIDTH-SD 39.3 % (39-53); RED BLOOD COUNT 3.33 M/uL (4.00-5.50); WHITE BLOOD COUNT 6.5 K/uL (4.1-10.2)
[2017-11-23 05:12] LABS: ALBUMIN 3.2 g/dL (3.2-4.8); CHLORIDE 97 mEq/L (99-109); POTASSIUM 4.5 mEq/L (3.7-5.4)
[2017-11-23 05:15] LABS: GLUCOSE 160 mg/dL (70-99)
[2017-11-23 05:18] LABS: PHOSPHORUS 4.8 mg/dL (2.5-4.9)
[2017-11-23 05:19] LABS: CREATININE 5.5 mg/dL (0.6-1.3); GFR ESTIMATE (CALCULATED) 12 mL/min/ (58.99-99999); SODIUM 131 mEq/L (136-147)
[2017-11-23 05:21] LABS: URIC ACID 11.9 mg/dL (3.1-9.2)
[2017-11-23 05:22] LABS: UREA NITROGEN (BUN) 60 mg/dL (9-23)
[2017-11-23 07:00] LABS: IRON 33 MCG/DL (35-150)
[2017-11-23 07:01] LABS: TRANSFERRIN (TIBC) 177.9 mg/dL (215-380); TRANSFERRIN SATUR. 19 % (20-55)
[2017-11-23 10:51] LABS: HEPATITIS B SURFACE ANTIGEN Nonreactive
[2017-11-23 10:52] LABS: HEPATITIS B SURFACE ANTIBODY Nonreactive
== END 2017-11-23 18:45 | disposition short-term general hospital (02) | DRG 682 ==
LOC: 4WEST 11:27 → ENRESERV 11:27 → 4WEST 12:50
PROVIDERS: Internal Medicine Critical Care Medicine; Internal Medicine Nephrology
PROC: 5A1D70Z Performance of Urinary Filtration, Intermittent, Less than 6 Hours Per Day (ICD-10-PCS; principal; 2017-11-22)
PROC: 02H633Z Insertion of Infusion Device into Right Atrium, Percutaneous Approach (ICD-10-PCS; principal; 2017-11-22)
DX: N17.9 Acute kidney failure, unspecified (principal); I21.4 Non-ST elevation (NSTEMI) myocardial infarction; N18.5 Chronic kidney disease, stage 5; I25.110 Atherosclerotic heart disease of native coronary artery with unstable angina pectoris; E10.22 Type 1 diabetes mellitus with diabetic chronic kidney disease; I13.2 Hypertensive heart and chronic kidney disease with heart failure and with stage 5 chronic kidney disease, or end stage renal disease; I50.33 Acute on chronic diastolic (congestive) heart failure; G47.33 Obstructive sleep apnea (adult) (pediatric); K21.9 Gastro-esophageal reflux disease without esophagitis; K31.84 Gastroparesis; E78.5 Hyperlipidemia, unspecified; D64.9 Anemia, unspecified; I42.9 Cardiomyopathy, unspecified; E10.21 Type 1 diabetes mellitus with diabetic nephropathy; E10.43 Type 1 diabetes mellitus with diabetic autonomic (poly)neuropathy; F32.9 Major depressive disorder, single episode, unspecified; F41.9 Anxiety disorder, unspecified; M19.119 Post-traumatic osteoarthritis, unspecified shoulder; D86.9 Sarcoidosis, unspecified; Z79.4 Long term (current) use of insulin
CPT/HCPCS: 80069; 81003; 82570; 82948; 83540; 84156; 84466; 84550; 85025; 86706; 86850; 86900; 86901; 87340; 87641; 94799; C1750; C1894; J0690; J1644; J2250; J2270; J3010; S0020

== ENCOUNTER → 2017-12-01 | Outpatient (CLI) | payer BC, OTHER | END | disposition home or self-care (01) | LOC: AMB 13:16 | PROC: 02PYX3Z Removal of Infusion Device from Great Vessel, External Approach (ICD-10-PCS; principal; 2017-12-01) | DX: Z45.2 Encounter for adjustment and management of vascular access device (principal); Z87.448 Personal history of other diseases of urinary system ==

== ENCOUNTER 2017-12-26 05:11 | Observation (INO) | payer BC, OTHER ==
[~2017-12-26] VITALS: Ht 175.3 cm; Wt 84.1 kg
[2017-12-26 06:01] LABS: HEMOGLOBIN 12.2 G/DL (12.5-16.6); MCH 31.3 PG (29.0-34.0); MCHC 35.9 G/DL (30.0-36.0); MCV 87.2 FL (86-99); PLATELET COUNT 193 K/uL (156-360); RBC DIS.WIDTH-SD 38.3 % (39-53); WHITE BLOOD COUNT 7.1 K/uL (4.1-10.2)
[2017-12-26 06:09] LABS: APPEARANCE CLEAR ((CLEAR)); BILIRUBIN NEGATIVE; BLOOD NEGATIVE; COLOR YELLOW ((YELLOW)); GLUCOSE (STRIP) >=500; KETONES NEGATIVE; LEUKOCYTES NEGATIVE; NITRITE NEGATIVE; PROTEIN (STRIP) >=500; SPECIFIC GRAVITY 1.015 (1.000-1.030); UROBILINOGEN 0.2 MG/DL (0.2-1.0)
[2017-12-26 06:14] LABS: ALBUMIN 3.8 g/dL (3.2-4.8); CHLORIDE 105 mEq/L (99-109); POTASSIUM 3.9 mEq/L (3.7-5.4); SODIUM 142 mEq/L (136-147)
[2017-12-26 06:16] LABS: GLUCOSE 119 mg/dL (70-99); TOTAL PROTEIN 6.2 g/dL (6.4-8.3)
[2017-12-26 06:18] LABS: TOTAL BILIRUBIN 0.5 mg/dL (0.0-1.0)
[2017-12-26 06:20] LABS: ALKALINE PHOSPHATASE 93 IU/L (3-129); CREATININE 3.3 mg/dL (0.6-1.3); GFR ESTIMATE (CALCULATED) 22 mL/min/ (58.99-99999)
[2017-12-26 06:21] LABS: UREA NITROGEN (BUN) 35 mg/dL (9-23)
[2017-12-26 06:22] LABS: AST (GOT) 14 IU/L (2-34)
[2017-12-26 06:23] LABS: ALT (GPT) 11 IU/L (3-49); LIPASE 8 U/L (1.0-51.0)
[2017-12-26 06:24] LABS: BACTERIA RARE /HPF; EPITHELIAL CELLS NONE SEEN /HPF; HYALINE CASTS 0-5 /LPF; MUCUS TRACE /LPF; RED BLOOD CELLS 0-5 /HPF (0-5); UCUL ADDED? NO; WHITE BLOOD CELLS 0-5 /HPF (0-5)
[2017-12-26 06:24] LABS: TROP-I INTERPRETATION NEGATIVE; TROPONIN-I 0.02 ng/mL (0.0-0.30)
[2017-12-26 09:08] VITALS: BP 129/71
[2017-12-26] MEDS ORDERED: PROTONIX40 MG PO (11:25)
[2017-12-26] MEDS ORDERED: PRINIVIL5 MG PO (11:25)
[2017-12-26 12:17] LABS: TROP-I INTERPRETATION NEGATIVE; TROPONIN-I 0.03 ng/mL (0.0-0.30)
[2017-12-26 12:20] VITALS: BP 160/74
[2017-12-26 16:36] VITALS: BP 159/80
[2017-12-26 18:12] LABS: TROP-I INTERPRETATION NEGATIVE; TROPONIN-I 0.02 ng/mL (0.0-0.30)
[2017-12-26 19:00] VITALS: BP 184/95
[2017-12-26 23:05] VITALS: BP 167/82
[2017-12-27 03:38] VITALS: BP 130/70
[2017-12-27 06:28] LABS: HEMATOCRIT 31.4 % (38.0-50.0); HEMOGLOBIN 10.7 G/DL (12.5-16.6); MCH 30.1 PG (29.0-34.0); MCHC 34.1 G/DL (30.0-36.0); MCV 88.2 FL (86-99); PLATELET COUNT 188 K/uL (156-360); RBC DIS.WIDTH-CV 11.9 % (11.8-14.6); RBC DIS.WIDTH-SD 38.9 % (39-53); RED BLOOD COUNT 3.56 M/uL (4.00-5.50); WHITE BLOOD COUNT 5.2 K/uL (4.1-10.2)
[2017-12-27 06:46] LABS: PTT 28.8 SEC (25-37)
[2017-12-27 06:51] LABS: CHLORIDE 109 MEQ/L (99-109); CREATININE 2.9 MG/DL (0.6-1.3); GFR ESTIMATE (CALCULATED) 25 mL/min/ (58.99-99999); GLUCOSE 100 mg/dL (70-99); POTASSIUM 4.1 MEQ/L (3.7-5.4); SODIUM 144 MEQ/L (136-147); UREA NITROGEN (BUN) 25 mg/dL (9-23)
[2017-12-27 07:27] VITALS: BP 158/82
[2017-12-27] MEDS ORDERED: ZOFRAN4 MG PO (09:41)
== END 2017-12-27 11:01 | disposition home or self-care (01) ==
LOC: EME 05:11 → EDOF 07:57 → 5WEST 07:57 → EDOF 07:57 → ENRESERV 08:09 → EDOF 08:17 → ENRESERV 08:19 → 5WEST 08:59
PROVIDERS: Emergency Medicine; Hospitalist; Physician Assistant Medical
DX: R07.89 Other chest pain (principal); N17.9 Acute kidney failure, unspecified; E86.0 Dehydration; K52.9 Noninfective gastroenteritis and colitis, unspecified; I13.0 Hypertensive heart and chronic kidney disease with heart failure and stage 1 through stage 4 chronic kidney disease, or unspecified chronic kidney disease; I50.32 Chronic diastolic (congestive) heart failure; N18.4 Chronic kidney disease, stage 4 (severe); E10.21 Type 1 diabetes mellitus with diabetic nephropathy; E10.22 Type 1 diabetes mellitus with diabetic chronic kidney disease; E10.319 Type 1 diabetes mellitus with unspecified diabetic retinopathy without macular edema; E10.51 Type 1 diabetes mellitus with diabetic peripheral angiopathy without gangrene; E10.43 Type 1 diabetes mellitus with diabetic autonomic (poly)neuropathy; I25.89 Other forms of chronic ischemic heart disease; I25.10 Atherosclerotic heart disease of native coronary artery without angina pectoris; I25.2 Old myocardial infarction; Z95.5 Presence of coronary angioplasty implant and graft; E78.5 Hyperlipidemia, unspecified; G47.33 Obstructive sleep apnea (adult) (pediatric); D86.9 Sarcoidosis, unspecified; Z82.49 Family history of ischemic heart disease and other diseases of the circulatory system; Z88.8 Allergy status to other drugs, medicaments and biological substances; Z90.49 Acquired absence of other specified parts of digestive tract; Z79.82 Long term (current) use of aspirin
CPT/HCPCS: 71045; 74176; 80048; 80053; 81003; 82948; 83605; 83690; 83880; 84484; 85027; 85610; 85730; 93005; 99281; 99285; G0378; J1644; J1815; J2405; J2765; J3010; J7030; S0028